=== PATIENT | male | born 1955 | race Asian ===

== ENCOUNTER 2023-01-22 09:21 | Day surgery (SDC) | payer OTHER ==
[~2023-01-22] VITALS: Ht 170.2 cm; Wt 95.3 kg
[2023-01-22] MEDS ORDERED: fentaNYL citrate 0.05 MG/ML VIAL ONE (12:44)
[2023-01-22] MEDS ORDERED: LIDOCAINE 2% 100 MG/5 ML UJET TP ONE (12:44)
[2023-01-22] MEDS ORDERED: fentaNYL citrate 0.05 MG/ML VIAL IVP ONE (13:35)
== END 2023-01-22 14:40 | disposition home or self-care (01) ==
LOC: MDS 09:21 → MMU 09:58 → MDS 14:40
PROVIDERS: ATTEND Internal Medicine Gastroenterology
DX: Z12.11 Encounter for screening for malignant neoplasm of colon (principal); K64.9 Unspecified hemorrhoids; I10 Essential (primary) hypertension; I25.10 Atherosclerotic heart disease of native coronary artery without angina pectoris; E78.00 Pure hypercholesterolemia, unspecified; Z79.899 Other long term (current) drug therapy
CPT/HCPCS: 45378; J3010